=== PATIENT | female | born 1995 | race Caucasian/White ===

== ENCOUNTER 2018-07-03 23:45 | Observation (INO) ==
--- NOTE | 2018-07-04 00:17 | Emergency Department Note ---
Disposition Clinical Impression: Post-tonsillectomy hemorrhage Disposition: Admitted As Inpatient Condition: Undetermined Forms: Work/School Release, ED Satisfaction Letter Time of Disposition: 00:18 General Adult HPI - General Chief complaint: ED General Medical Stated complaint: ENT Time Seen by Provider: 07/03/18 23:50 Source: patient, EMS Mode of arrival: EMS Limitations: no limitations Nursing Notes Reviewed: Yes Vital Signs Reviewed: Yes - History of Present Illness HPI Narrative: 22-year-old female who status post tonsillectomy 8 days ago at [facility] by Dr. Holloway arrives to the emergency department as a posterior any bleed. Patient states that yesterday started noticing a large amount of blood. Went to urgent care this morning where they evacuated the clot, used nebulized T x-ray and use silver nitrate. The patient was referred to [facility] and discussed with your nose and throat outpatient. Upon arrival to the emergency department the patient has a large 1 cm clot in the posterior oropharynx with the patient's tonsillectomy was performed. After recommendation by Dr. Sauceda who is vacation guide your nose and throat is familiar with this patient at this time, he requested saline mouthwashes to determine if there is any further oozing of blood. Patient did have some noted bruising of the blood and was discussed with on-call ear nose and throat. Patient denies any other complaints at this time. Stable vital signs of tachycardia. Patient's hemoglobin from urgent care was within normal limits. Pain Scale: 10 - Related Data Allergies Allergy/AdvReac Type Severity Reaction Status Date / Time No Known Allergies Allergy Verified 07/03/18 23:52 All systems ED: reviewed and negative except as stated. Constitutional: Denies: fever, weakness ENT ED: Reports: throat pain Cardiovascular: Denies: chest pain Respiratory: Denies: dyspnea Gastrointestinal: Reports: nausea. Denies: abdominal pain, vomiting, diarrhea Genitourinary: Denies: urgency, dysuria Musculoskeletal: Denies: back pain Integumentary: Denies: rash Neurological: Denies: headache Past Medical History - Past Medical History Attestation: Yes The following information was validated with the patient. Source: patient, old records reviewed Medical history: Reports: no medical history, other Surgical history: Reports: other (tonsillectomy) Psychiatric history: Reports: no psych history - Social History Smoking Status: Never smoker Smokeless Tobacco Status: No Alcohol use: Reports: rarely Drug use: Reports: none Physical Exam - General Limitations: no limitations General appearance: alert, in no apparent distress - Head Head exam: atraumatic, normocephalic, normal inspection - Eye Eye exam: Present: normal appearance, PERRL, EOMI - ENT ENT exam: normal exam, mucous membranes moist, other (Shirin noted in posterior oropharynx with a 1 cm clot on the right posterior oropharynx. After mouth washing with saline there was oozing of blood noted.) - Neck Neck exam: Present: normal inspection, full ROM, trachea midline - Chest Chest inspection: Present: normal inspection, symmetric chest wall rise - Respiratory Respiratory exam: Present: normal lung sounds bilaterally - Cardiovascular Cardiovascular exam: Present: regular rate, normal rhythm, normal heart sounds - Abdominal Exam Abdominal exam: Present: soft, Non-Tender. Absent: tenderness, distention, guarding, rebound, rigidity - Extremities Exam Extremities exam: Present: normal inspection, full ROM. Absent: tenderness, pe waqas edema - Neurological Exam Neurological exam: Present: alert, oriented X3 - Skin Skin exam: Present: warm, dry, intact, normal color Course Vital Signs Temperature 98.3 F 07/03/18 23:53 Pulse Rate 93 07/03/18 23:53 Respiratory Rate 18 07/03/18 23:53 Blood Pressure 121/86 07/03/18 23:53 O2 Sat by Pulse Oximetry 99 07/03/18 23:53 Temperature 98.3 F 07/03/18 23:53 Pulse Rate 93 07/03/18 23:53 Respiratory Rate 18 07/03/18 23:53 Blood Pressure 121/86 07/03/18 23:53 O2 Sat by Pulse Oximetry 99 07/03/18 23:53 Oxygen Delivery Oxygen Delivery Room Air Medical Decision Making - MDM Narrative Medical decision making narrative: Spoke with on-call ENT, Dr. Sauceda who will take the patient to the OR. No further recommendations noted at this time. Patient stable at this time. - Medical Records Medical records reviewed: Yes I reviewed the patient's medical records.
--- NOTE | 2018-07-04 00:21 | Emergency Department Note ---
Disposition Clinical Impression: Post-tonsillectomy hemorrhage Disposition: Admitted As Inpatient Forms: ED Satisfaction Letter, Work/School Release General Adult HPI - General Chief complaint: ED General Medical Stated complaint: ENT Time Seen by Provider: 07/03/18 23:50 Source: patient, EMS Mode of arrival: EMS Limitations: no limitations - History of Present Illness Pain Scale: 10 - Related Data Allergies Allergy/AdvReac Type Severity Reaction Status Date / Time No Known Allergies Allergy Verified 07/03/18 23:52 Constitutional: Denies: fever, weakness ENT ED: Reports: throat pain Cardiovascular: Denies: chest pain Respiratory: Denies: dyspnea Gastrointestinal: Reports: nausea. Denies: abdominal pain, vomiting, diarrhea Genitourinary: Denies: urgency, dysuria Musculoskeletal: Denies: back pain Integumentary: Denies: rash Neurological: Denies: headache Past Medical History - Past Medical History Medical history: Reports: no medical history, other Surgical history: Reports: other (tonsillectomy) Psychiatric history: Reports: no psych history - Social History Smoking Status: Never smoker Smokeless Tobacco Status: No Alcohol use: Reports: rarely Drug use: Reports: none Physical Exam - General Limitations: no limitations General appearance: alert, in no apparent distress Course Vital Signs Temperature 98.3 F 07/03/18 23:53 Pulse Rate 93 07/03/18 23:53 Respiratory Rate 18 07/03/18 23:53 Blood Pressure 121/86 07/03/18 23:53 O2 Sat by Pulse Oximetry 99 07/03/18 23:53 Temperature 98.3 F 07/03/18 23:53 Pulse Rate 93 07/03/18 23:53 Respiratory Rate 18 07/03/18 23:53 Blood Pressure 121/86 07/03/18 23:53 O2 Sat by Pulse Oximetry 99 07/03/18 23:53 Oxygen Delivery Oxygen Delivery Room Air Attestation Statement - Attestation Attestation: I examined this patient and my medical decision-making was reviewed with the Resident Physician. I agree with the documented findings, disposition and treatment plan as described except to the extent set forth below. 22-year-old female presents from an [facility] facility for a post-tonsillectomy bleed. Patient had her tonsils out 8 days ago. She had followed up with ENT in their office for some bleeding problems 2 days ago. Today she was seen in the emergency room and was given a aerosolized TXA tx which seemed to help throughout most the day up until she started bleeding again tonight. She was sent to our ER to be seen by our ENT doctor. Apparently she could not be seen at their facility to have this done in the operating room as the did not have any operating room availability so she was sent here. We gave her a gargle with saltwater treatment which did not help. She still has some oozing around the right tonsil region. There is a very large blood clot in the right tonsillar region as well. We did speak with our on-call ENT physician. Patient will be seen in the ER and sent to the operating room under his care. She is hemodynamically stable at this time.
[2018-07-04] MEDS ORDERED: Lidocaine -MPF 2% 2 ML VIAL ONE (01:08)
[2018-07-04] MEDS ORDERED: *HR* Propofol 200 MG/20 ML VIAL IVP ONE (01:08)
[2018-07-04] MEDS ORDERED: *HR* Midazolam HCl 2 MG/2 ML VIAL ONE (01:08)
[2018-07-04] MEDS ORDERED: *HR* FentaNYL (PF) 100 MCG/2 ML VIAL ONE (01:08)
[2018-07-04] MEDS ORDERED: Famotidine 20 MG/2 ML VIAL ONE (01:17)
[2018-07-04] MEDS ORDERED: Acetaminophen IV 1,000 MG/100 ML INFUS..BTL ONE (01:17)
[2018-07-04] MEDS ORDERED: Metoclopramide 10 MG/2 ML VIAL ONE (01:17)
[2018-07-04] MEDS ORDERED: Ferric Subsulfate 8 GM TOPICAL ONE (01:18)
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
--- NOTE | 2018-07-04 01:51 | ENT - History & Physical ---
Date of Encounter: 07/04/18 Time of Encounter: 01:49 Assessment and Plan (1) Post-tonsillectomy hemorrhage Current Visit: Yes Status: Acute The assessment and plan as outlined above was discussed with the patient and/or family members who expressed understanding and agreement. All questions were answered. Due to the active bleeding around the blood clot, and failed attempt with silver nitrate cautery, we will take the patient to the operating suite and control of the post-tonsillectomy hemorrhage under general anesthesia with the use of monopolar cautery. The risks benefits and alternatives were discussed with the patient who elected to proceed with surgical intervention. The patient's lab including hematocrit, hemoglobin, and coagulation studies were reviewed and were within normal limits. The patient will be admitted overnight for observation. History of Present Illness Chief complaint: Post tonsillectomy hemorrhage HPI: Ms. Mk Cooper is a 22 year old female who presents through the emergency department from an outside facility with a post-tonsillectomy hemorrhage. the patient underwent tonsillectomy approximately 8 days ago by an outside ENT and began to have bleeding from the right tonsillar fossa noted at approximately 1 AM on July 03. The patient was seen at the ENT surgeons office later that morning, a clot was present in the right tonsillar fossa and this was suctioned away and silver nitrate was applied to the area of bleeding. This failed to stop the hemorrhage and the patient returned to the emergency department in [facility]. The patient denies any lightheadedness or sensation of heart racing. The patient denies any trauma to the tonsillar fossa. The patient has no significant personal or family history of bleeding disorders. Past Med Surg Social Fam HX - Past Medical History Medical history: no medical history, other Additional medical history: hypotension Psychiatric history: no psych history - Past Surgical History Surgical History: other (tonsillectomy, extraction of was doing teeth) Additional surgical history: ruptured bowel repair. wisdom teeth - Social History Smoking Status: Never smoker Smokeless Tobacco Status: No Alcohol use: rarely Drug use: none Medications and Allergies Oxycodone HCl/Acetaminophen [Percocet 5-325 mg Tablet] 1 each PO Q6H PRN 07/04/18 [History] Allergy/AdvReac Type Severity Reaction Status Date / Time No Known Allergies Allergy Verified 07/03/18 23:52 ENT - ROS - Constitutional Constitutional ROS: no lethargy - EENT Nose, mouth and throat: as per HPI, dry mouth - Cardiovascular Cardiovascular ROS IM: no dyspnea, no lightheadedness - Respiratory no cough, no wheezing - Gastrointestinal Gastrointestinal: no coffee ground emesis - Genitourinary Genitourinary ROS: no difficulty urinating - Musculoskeletal Musculoskeletal ROS: no muscle weakness - Integumentary Integumentary: no non-healing lesions - Neurological Neurological ROS: no disequilibrium, no dizziness - Hematologic/Lymphatic no easy bleeding, no easy bruising ENT Exam Initial Vital Signs Temp Pulse Resp BP Pulse Ox 98.3 F 93 18 121/86 99 07/03/18 23:53 07/03/18 23:53 07/03/18 23:53 07/03/18 23:53 07/03/18 23:53 - ENT normal pinna, normal nares, normal mucosa, no hearing loss, no congestion, atraumatic, normocephalic, CN 2-12 grossly intact, Other (Right tonsillar fossa demonstrates a 1.0 x 1.0 cm blood clot, there is significant using a fresh blood around the blood clot. The left tonsil fossa has white eschar and no signs of active bleeding.). negative: decreased hearing, nasal discharge - Neck no masses, no bruits, trachea midline, no lymphadectomy, no venous distension. negative: deviated trachea - Respiratory normal expansion, normal respiratory effort Results - Labs All other labs normal.
[2018-07-04] MEDS ORDERED: Ringers Solution, Lactated 1,000 ML IVC ONE (01:54)
[2018-07-04] MEDS ORDERED: *HR* HYDROcodone/Acet 5/325 mg TABLET PO PRN (01:57)
[2018-07-04] MEDS ORDERED: *HR* OxyCODONE Immed Rel 5 MG TABLET PO PRN (01:57)
[2018-07-04] MEDS ORDERED: Ondansetron 4 MG/2 ML VIAL IVP PRN (01:57)
[2018-07-04] MEDS ORDERED: Naloxone 0.4 MG/ML INJ IVP PRN (01:57)
--- NOTE | 2018-07-04 02:06 | Operative Note ---
Date of procedure: 07/04/18 Pre-op diagnosis: Post Tonsillectomy Hemorrhage Post-op diagnosis: same Procedure: Control of Post Tonsillectomy Hemorrhage Complications: None Anesthesia: GETA Surgeon: Luis Antonio Sauceda Was there an funeral director's assistant present: No Estimated blood loss (cc): 10 IV fluids (cc): 800 Urine output (cc): 0 Specimen: None Condition: stable Disposition: observation Procedure in Detail: Indications: This is a 22-year-old female who was found to have a tonsillar bleed from the right fossa and is status post tonsillectomy, postoperative day #8 Consent:Risks benefits alternatives to tonsillectomy was discussed in detail with the patient. Risks discussed in detail including bleeding, infection, dysphagia, pain, possible need for further further surgery. Risks were understood and agreement was made to proceed with the surgery as outlined. Consent was obtained in writing. Findings: Bleeding vessel superior and inferior poles of the right tonsil fossa Description of procedure in detail: Patient was identified in the Pre-operative area by name and date of , consent was reviewed, and History and Physical completed. Patient was brought back to the OR by the anesthesia team and placed supine on the operating room table. Patient was placed under general anesthesia and intubated using an endotracheal tube and eyes were taped. The ET tube was secured in a midline and inferior position. The bed was then rotated, a shoulder roll was placed, and the head was draped. The Jeremiah-Mario was then placed within the mouth retracting the tongue and ET tube inferiorly to obtain good exposure of the oropharynx and the retractor was then suspended from the valentine stand. Patient was noted to have a large clot within the right tonsil fossa. This was carefully suctioned free to visualize point of bleeding. There were 2 vessels noted to have significant bleeding, one in the superior aspect of the tonsillar fossa and the other in the inferior aspect of the tonsillar fossa. This was cauterized using suction cautery. The left tonsil fossa was then visualized and suction lightly and no active bleeding was noted. Following this Monsel's solution was placed into the tonsillar fossa. Mouth and nasopharynx was copiously irrigated multiple times with saline. Patient was taken out of suspension and allowed to relax for a few minutes. Jeremiah- Mario retractor was then opened again to inspect the mouth. Suction was then suctioned with a 8-Indonesian flexible suction. Small amount of blood and clots were suctioned from the stomach. Patient was then let out of suction and allowed to sit for a couple of minutes. Patient was brought back in suspension and Tonsil fossas were again examined and hemostasis was confirmed. The Jeremiah-Mario retractor was removed at this time. The mouth was cleaned of debris and wiped clean. The patient was then turned over to Anesthesia in good condition.
[2018-07-04] MEDS ORDERED: Dexamethasone 4 MG/ML VIAL ONE ×3 (02:28→02:34)
[2018-07-04] MEDS ORDERED: Ondansetron 4 MG/2 ML VIAL ONE (02:28)
[2018-07-04] MEDS: Ringers Solution, Lactated 1,000 ML IVC SCH ×2 (02:31→04:50)
[2018-07-04] MEDS ORDERED: *HR* HYDROmorphone (PF) 1 MG/ML SYRINGE IVP ONE (02:47)
[2018-07-04] MEDS ORDERED: *HR* HYDROmorphone (PF) 1 MG/ML SYRINGE ONE (02:50)
--- NOTE | 2018-07-04 02:54 | Discharge Summary ---
Date of Encounter: 07/07/18 Time of Encounter: 14:30 - Discharge Diagnosis (1) Post-tonsillectomy hemorrhage Priority: Primary Status: Resolved Comments: Patient did well overnight, and there was no evidence of active bleeding. Quantitative discharge, the patient was tolerating regular diet. Pain well controlled. - Hospital Course Hospital course: Ms. Mk Cooper is a 22 year old female who presented through the emergency department with a post tonsillectomy bleed. She was taken to the operating suite and underwent control of post-tonsillectomy hemorrhage. She was admitted overnight for observation. Overnight she did well, pain was controlled, and there was no active bleeding. Additionally the patient was tolerating a regular diet. The patient is to be discharged home in good/stable condition. - Time Spent with Patient Total time spent providing and/or coordinating discharge services: Less than 30 minutes Date of admission: 07/04/18 01:10 Primary care physician: PCP NONE Discharging clinician: Luis Antonio Sauceda Anticipated date of discharge: 07/04/18 - Discharge Medications Prescriptions: Discontinued Oxycodone HCl/Acetaminophen [Percocet 5-325 mg Tablet] 1 each PO Q6H PRN PRN Reason: Pain Allergies/Adverse Reactions: Allergy/AdvReac Type Severity Reaction Status Date / Time No Known Allergies Allergy Verified 07/03/18 23:52 ENT Exam Initial Vital Signs Temp Pulse Resp BP Pulse Ox 98.3 F 93 18 121/86 99 07/03/18 23:53 07/03/18 23:53 07/03/18 23:53 07/03/18 23:53 07/03/18 23:53 - ENT Other (The right tonsillar fossa does not demonstrate any active bleeding. There are no blood clots present.) Procedures and tests throughout hospitalization: Control of Post tonsillectomy Hemorrhage in Operating Room. Labs on day of discharge: Labs from last 24 hours 07/04/18 01:09 Urine Test Negative - Patient Status Disposition: Home, Self-Care Condition: Good Functional capacity at discharge: independent ambulation Overall status at discharge: patient is progressing back to baseline - Discharge Instructions Instructions: Tonsillectomy (DC) Follow Up With: Luis Antonio Sauceda DO [Partnered Physician] - (Web-requested, the office will call the patient to schedule a follow up appointment. ) Christofer Holloway DO [Non-Partnered Physician] - (The patient will need to call the office to schedule a follow up appoinment. ) Forms: Work/School Release, Inpatient Work/School Release Additional Instructions: ADULT ADENOID & TONSIL SURGERY HOME CARE INSTRUCTIONS GENERAL: After tonsillectomy, use of pain medication, there may be constipation for several days. PHYSICAL ACTIVITY: After this surgery, you should rest at home for the first 48 hours. Activity may gradually be increased over the next 5 to 10 days. Strenuous physical activity following surgery is discouraged for two weeks. You may return to work whenever comfortable; a week is average, but 10 days is not unusual. Absolutely no strenous physical activities for 14 days. DIET: The more you drink fluids, the sooner the pain will subside. Water, fruits juice, popsicles, Jell-O, Pedialyte, and Gatorade are excellent sources of liquid. Soft foods such as ice cream, sherbet, yogurt, pudding, apple sauce and easily chewed foods should also be encouraged.. Avoid hot or spicy foods, and foods that are hard and crunchy. If foods that are hard and crunchy are eaten, be sure to thouroughly chew the food into small pieces. Often, chewing gum or gummy bears speeds comfortable eating by reducing the spasm after surgery and can be started any time after surgery. PAIN: For the first several days (occasionally up to 2 weeks) following surgery, pain in the throat is to be expected. This can usually be controlled with over the counter Tylenol and Ibuprofen for two weeks, and for severe pain, presciption pain medication is given. Pain medication often will cause nausea and an anti- nausea medication will be prescribed for you if needed. Pain is often worse at night and may prompt the need for additional pain medication and sleeping with the head elevated can help. Expect pain in the ears after surgery as the same nerve that goes to the tonsil also goes to the ear and your body perceives the pain of tonsillectomy healing as coming from the ear. An ice collar can also be helpful for sore throat after surgery. Make this by placing ice cubes and water in a large Zip-Loc bag and wrapping it in a towel or by using a bag of frozen peas covered in a towel. Gently lay the ice pack on the front of the neck. FEVER: A low-grade fever (less than 101 degrees) following surgery may occur and should be treated with Tylenol (acetaminophen). Follow the directions on the bottle. If the fever persists (more than two days) or if a higher fever develops, call the office. Fever may indicate that you have not taken in sufficient fluids. BLEEDING: Post-operative bleeding is unusual, but it can occur up to two weeks after surgery. Avoiding heavy exercise and staying well hydrated will decrease, but not eliminate this risk. Most bleeding is minor and you may only some blood streaked in mucous or saliva. If this happens have the drink icy slushy liquids and/or gargle with ice chips mixed with water. If this does not stop the bleeding after 30 minutes, call our office to receive further instructions. If there is heavy bleeding begin drinking icy slushy liquids or gargle with ice chips and immediately call our office. FOLLOW UP: Follow up should be arranged 2- 3 weeks after surgery, call office for appointment if one was not previously scheduled. - Diet and Activity Activity: return to school once cleared by your PCP/specialist Diet: advance to your usual diet
[2018-07-04] MEDS ORDERED: *HR* Promethazine 25 MG/ML VIAL IVP PRN (03:11)
[2018-07-04] MEDS ORDERED: *HR* HYDROmorphone (PF) 1 MG/ML SYRINGE IVP PRN (03:11)
[2018-07-04] MEDS ORDERED: *HR* Labetalol 20 MG/4 ML SYRINGE IVP PRN (03:11)
--- NOTE | 2018-07-04 03:15 | Anesthesia Evaluation Post Op ---
Date of Encounter: 07/04/18 Time of Encounter: 03:17 - Vital Signs Vital Signs: Vital Signs/O2 Sat/Glucose, Most Current Temp Pulse Resp BP Pulse Ox 07/04/18 03:07 73 14 121/78 99 07/04/18 02:57 86 14 118/64 100 07/04/18 02:52 98 16 127/81 100 07/04/18 02:47 98.7 F 115 18 131/84 97 07/04/18 01:16 18 119/76 07/03/18 23:53 98.3 F 93 18 121/86 99 - Lungs Lungs: Clear Ascult./Percussion - Airway Airway: Non-obstructed - Cardiovascular Regular Rate - Mental Status Mental Status: Alert & Oriented, Answers Appropriately - Pain Pain Scale: 5 Pain Scale used: Numeric (1 - 10) - Nausea Vomiting Nausea Vomiting: Not Present - Hydration Hydration: Ice chips, Has not voided - Discharge PostOp Status: Transfer Patient to floor Anes Supervising Prov Stmt: Pt seen/evaluated, VSS and has met criteria for discharge to floor. - MD Melia
[2018-07-04 10:15] VITALS: BP 103/69
--- NOTE | 2018-07-04 15:01 | Discharge Summary ---
Outpatient Proc Discharge Plan - Plan Additional Instructions: ADULT [facility] TONSIL SURGERY HOME CARE INSTRUCTIONS GENERAL: After tonsillectomy, use of pain medication, there may be constipation for several days. PHYSICAL ACTIVITY: After this surgery, you should rest at home for the first 48 hours. Activity may gradually be increased over the next 5 to 10 days. Strenuous physical activity following surgery is discouraged for two weeks. You may return to work whenever comfortable; a week is average, but 10 days is not unusual. Absolutely no strenous physical activities for 14 days. DIET: The more you drink fluids, the sooner the pain will subside. Water, fruits juice, popsicles, Jell-O, Pedialyte, and Gatorade are excellent sources of liquid. Soft foods such as ice cream, sherbet, yogurt, pudding, apple sauce and easily chewed foods should also be encouraged.. Avoid hot or spicy foods, and foods that are hard and crunchy. If foods that are hard and crunchy are eaten, be sure to thouroughly chew the food into small pieces. Often, chewing gum or gummy bears speeds comfortable eating by reducing the spasm after surgery and can be started any time after surgery. PAIN: For the first several days (occasionally up to 2 weeks) following surgery, pain in the throat is to be expected. This can usually be controlled with over the counter Tylenol and Ibuprofen for two weeks, and for severe pain, presciption pain medication is given. Pain medication often will cause nausea and an anti- nausea medication will be prescribed for you if needed. Pain is often worse at night and may prompt the need for additional pain medication and sleeping with the head elevated can help. Expect pain in the ears after surgery as the same nerve that goes to the tonsil also goes to the ear and your body perceives the pain of tonsillectomy healing as coming from the ear. An ice collar can also be helpful for sore throat after surgery. Make this by placing ice cubes and water in a large Zip-Loc bag and wrapping it in a towel or by using a bag of frozen peas covered in a towel. Gently lay the ice pack on the front of the neck. FEVER: A low-grade fever (less than 101 degrees) following surgery may occur and should be treated with Tylenol (acetaminophen). Follow the directions on the bottle. If the fever persists (more than two days) or if a higher fever develops, call the office. Fever may indicate that you have not taken in sufficient fluids. BLEEDING: Post-operative bleeding is unusual, but it can occur up to two weeks after surgery. Avoiding heavy exercise and staying well hydrated will decrease, but not eliminate this risk. Most bleeding is minor and you may only some blood streaked in mucous or saliva. If this happens have the drink icy slushy liquids and/or gargle with ice chips mixed with water. If this does not stop the bleeding after 30 minutes, call our office to receive further instructions. If there is heavy bleeding begin drinking icy slushy liquids or gargle with ice chips and immediately call our office. FOLLOW UP: Follow up should be arranged 2- 3 weeks after surgery, call office for appointment if one was not previously scheduled.
== END 2018-07-04 16:15 | disposition home or self-care (01) ==
LOC: 3ANU 23:45 → EMEROOARM 23:45 → 3ANU 07-04 01:18
PROVIDERS: ADMIT Otolaryngology; ATTEND Otolaryngology